=== PATIENT | male | born 1940 | race African-American/Black ===

== ENCOUNTER 2021-03-02 16:19 | Emergency (ER) | payer OTHER ==
[~2021-03-02] VITALS: Ht 182.9 cm; Wt 77.1 kg
--- NOTE | ~2021-03-02 | EMS ---
[address] [address] EMS Patient Care Report Name: DOUGLAS MCCOLLUM Room #: DEP TONI Quesada#: [id number] Admission: 03/02/21 Attend Phys: Discharge: 03/02/21 Date of : 44 Report #: [id number] THIS REPORT FOR: //name// Report Transmitted: 03/07/2021 14:35 EMS Care Summary [place], [place]/[facility] Incident [id number] @ 03/02/2021 15:22 Incident Location [facility] ALIS STEVENS G10 Patient DOUGLAS MCCOLLUM Male, 80 Years 1940 Patient Address [address] [place] [id number] Patient History Hypertension (HTN),Anemia,Alcohol Abuse,Type 2 Diabetes,Novel Coronavirus (COVID-19), Patient Allergies No known allergies, Patient Medications None Reported, Chief Complaint left hip pain from a fall Disposition Transported No Lights/[place] Dispatch Reason Falls Transported To [facility] Narrative Dispatched out on a fall. Upon arrival to the [facility] we met with staff members and the Pt in his room. Pt is on the floor next to his bed. Pt states he was transferring form his bed to the wheel chair when the wheel chair [address] [address] EMS Patient Care Report Name: DOUGLAS MCCOLLUM Room #: DEP ER Jeniffer#: [id number] Admission: 03/02/21 Attend Phys: Discharge: 03/02/21 Date of : 44 Report #: [id number] slipped out and he fell to the floor. Pt denies loss of consciousness and remembers the entire event. Pt states when he landed on his side his hip started to hurt. Staff members wanted to send him out for the complaint of pain. Pt is carline to the cot and secured for transport. Vital signs are obtained and recorded. No other complaints are voiced for the duration of the transport. Upon arrival to the hospital Pt is moved to ER room hallway 2. Pt is transferred to the ER bed. Pt care is transferred to nursing staff. Initial Vitals @15:47P: 52,CO: 5,SpO2: 83, @15:42P: 48,SpO2: 99, @15:44P: 52,CO: 8,SpO2: 65, @15:50P: 47,SpO2: 98, @15:42P: 50,R: 16,BP: 159/103,Pain: 4/10,GCS: 15,SpO2: 98,Revised Trauma: 12, @15:49P: 54,R: 18,BP: 146/70,Pain: 4/10,GCS: 15,SpO2: 74,Revised Trauma: 12, Assessments @15:34MENTAL:Person Oriented,Event Oriented,Time Oriented,Place Oriented,SKIN:HEENT:Head/Face: No Abnormalities,Neck/Airway: No Abnormalities,LUNG SOUNDS:General: No Abnormalities,ABDOMEN:General: No Abnormalities,PELVIS//GI:No Abnormalities,EXTREMITIES:Left Leg: Weakness,Right Leg: Weakness,Left Leg: Other,Left Leg: JO ANN,PULSE:Radial: 2+ Normal,NEURO:No Abnormalities, Impression Injury of Hip Procedures @15:34 ALS Assessment Response: UnchangedSucceeded @15:38 Stretcher Response: Unchanged Timeline 15:20,Call Received 15:20,Dispatch Notified 15:22,Dispatched 15:22,En Route 15:32,On Scene 15:34,At Patient 15:34,ALS Assessment,Response: UnchangedSucceeded, 15:38,Stretcher,Response: Unchanged 15:42,BP: 159/103 M,PULSE: 50,RR: 16 R,SPO2: 98 Ox,ETCO2: ,BG: ,PAIN: 4,GCS: 15, 15:42,BP: / M,PULSE: 48,RR: R,SPO2: 99 Ox,ETCO2: ,BG: ,PAIN: ,GCS: , 15:44,BP: / M,PULSE: 52,RR: R,SPO2: 65 Ox,ETCO2: ,BG: ,PAIN: ,GCS: , 15:47,BP: / M,PULSE: 52,RR: R,SPO2: 83 Ox,ETCO2: ,BG: ,PAIN: ,GCS: , [facility] [address] [place] [address] EMS Patient Care Report Name: MCCOLLUMDOUGLAS MUÑOZ [id number] Admission: 03/02/21 Attend Phys: Discharge: 03/02/21 Date of : 44 Report #: [id number] 15:49,BP: 146/70 M,PULSE: 54,RR: 18 R,SPO2: 74 Ox,ETCO2: ,BG: ,PAIN: 4,GCS: 15, 15:50,BP: / M,PULSE: 47,RR: R,SPO2: 98 Ox,ETCO2: ,BG: ,PAIN: ,GCS: , 15:51,Depart Scene 15:55,At Destination 16:27,Call Closed Disclaimer v1.1 Copyright 2021 [employer] This EMS Care Summary contains data elements from the applicable legal record (which may be displayed differently). It is designed to provide pertinent information for the following purposes: continuity of care, clinical quality, and state data reporting. The complete legal record is available to ED staff and administrators of the receiving hospital in [facility]'s Patient Tracker. All data is provided "as is."
--- NOTE | ~2021-03-02 | EMS ---
[address] [address] EMS Patient Care Report Name: DOUGLAS MCCOLLUM Room #: REG TONI Quesada#: [id number] Admission: 03/02/21 Attend Phys: Discharge: Date of : 44 Report #: [id number] THIS REPORT FOR: //name// Report Transmitted: 03/03/2021 13:44 EMS Care Summary [place], [place]/[facility] Incident [id number] @ 03/02/2021 15:22 Incident Location [facility] ALIS STEVENS G10 Patient DOUGLAS MCCOLLUM Male, 80 Years 1940 Patient Address [address] [place] [address] Patient History Hypertension (HTN),Anemia,Alcohol Abuse,Type 2 Diabetes,Novel Coronavirus (COVID-19), Patient Allergies No known allergies, Patient Medications None Reported, Chief Complaint left hip pain from a fall Disposition Transported No Lights/[place] Dispatch Reason Falls Transported To [facility] Narrative Dispatched out on a fall. Upon arrival to the retirement we met with staff members and the Pt in his room. Pt is on the floor next to his bed. Pt states he was transferring form his bed to the wheel chair when the wheel chair [address] [address] EMS Patient Care Report Name: DOUGLAS MCCOLLUM Room #: REG Dipak#: [id number] Admission: 03/02/21 Attend Phys: Discharge: Date of : 44 Report #: [id number] slipped out and he fell to the floor. Pt denies loss of consciousness and remembers the entire event. Pt states when he landed on his side his hip started to hurt. Staff members wanted to send him out for the complaint of pain. Pt is carline to the cot and secured for transport. Vital signs are obtained and recorded. No other complaints are voiced for the duration of the transport. Upon arrival to the hospital Pt is moved to ER room hallway 2. Pt is transferred to the ER bed. Pt care is transferred to nursing staff. Initial Vitals @15:47P: 52,CO: 5,SpO2: 83, @15:42P: 48,SpO2: 99, @15:44P: 52,CO: 8,SpO2: 65, @15:50P: 47,SpO2: 98, @15:42P: 50,R: 16,BP: 159/103,Pain: 4/10,GCS: 15,SpO2: 98,Revised Trauma: 12, @15:49P: 54,R: 18,BP: 146/70,Pain: 4/10,GCS: 15,SpO2: 74,Revised Trauma: 12, Assessments @15:34MENTAL:Person Oriented,Event Oriented,Time Oriented,Place Oriented,SKIN:HEENT:Head/Face: No Abnormalities,Neck/Airway: No Abnormalities,LUNG SOUNDS:General: No Abnormalities,ABDOMEN:General: No Abnormalities,PELVIS//GI:No Abnormalities,EXTREMITIES:Left Leg: Weakness,Right Leg: Weakness,Left Leg: Other,Left Leg: JO ANN,PULSE:Radial: 2+ Normal,NEURO:No Abnormalities, Impression Injury of Hip Procedures @15:34 ALS Assessment Response: UnchangedSucceeded @15:38 Stretcher Response: Unchanged Timeline 15:20,Call Received 15:20,Dispatch Notified 15:22,Dispatched 15:22,En Route 15:32,On Scene 15:34,At Patient 15:34,ALS Assessment,Response: UnchangedSucceeded, 15:38,Stretcher,Response: Unchanged 15:42,BP: 159/103 M,PULSE: 50,RR: 16 R,SPO2: 98 Ox,ETCO2: ,BG: ,PAIN: 4,GCS: 15, 15:42,BP: / M,PULSE: 48,RR: R,SPO2: 99 Ox,ETCO2: ,BG: ,PAIN: ,GCS: , 15:44,BP: / M,PULSE: 52,RR: R,SPO2: 65 Ox,ETCO2: ,BG: ,PAIN: ,GCS: , 15:47,BP: / M,PULSE: 52,RR: R,SPO2: 83 Ox,ETCO2: ,BG: ,PAIN: ,GCS: , [facility] [address] [place] [address] EMS Patient Care Report Name: VEDADOUGLAS Room #: REG TONI Quesada#: [id number] Admission: 03/02/21 Attend Phys: Discharge: Date of : 44 Report #: [id number] 15:49,BP: 146/70 M,PULSE: 54,RR: 18 R,SPO2: 74 Ox,ETCO2: ,BG: ,PAIN: 4,GCS: 15, 15:50,BP: / M,PULSE: 47,RR: R,SPO2: 98 Ox,ETCO2: ,BG: ,PAIN: ,GCS: , 15:51,Depart Scene 15:55,At Destination 16:27,Call Closed Disclaimer v1.1 Copyright 2021 [employer] This EMS Care Summary contains data elements from the applicable legal record (which may be displayed differently). It is designed to provide pertinent information for the following purposes: continuity of care, clinical quality, and state data reporting. The complete legal record is available to ED staff and administrators of the receiving hospital in [employer]'s Patient Tracker. All data is provided "as is."
[2021-03-02 20:34] VITALS: BP 144/74
== END 2021-03-02 18:54 | disposition home or self-care (01) ==
LOC: ER 16:19
DX: S70.02XA Contusion of left hip, initial encounter (principal); Z86.16 Personal history of COVID-19; W06.XXXA Fall from bed, initial encounter; Y93.89 Activity, other specified; Y92.89 Other specified places as the place of occurrence of the external cause; Y99.8 Other external cause status